=== PATIENT | female | born 1940 | race Caucasian/White ===

== ENCOUNTER → 2016-03-09 | Outpatient (CLI) | payer MEDICARE, BC ==
--- NOTE | 2016-03-10 10:56 | US ---
EXAMINATION TYPE: US kidneys/renal and bladder DATE OF EXAM: 03/09/2016 3:04 PM COMPARISON: NONE CLINICAL HISTORY: N39.0 UTI, Z87.440 Personal Hx Recurrent UTI. EXAM MEASUREMENTS: Right Kidney: 8.7 x 5.2 x 2.9 cm Left Kidney: 8.9 x 4.5 x 4.4 cm Post Void Residual Volume: 5.6 mL TECHNOLOGIST IMPRESSION: wnl Right Kidney: mid pole hyperechoic focus = 0.4 x 0.7 x 0.3cm and lower pole parallel wall calcificati on 0.2 x 0.2 x 0.2 could be vessel wall calcification Left Kidney: no hydro or masses seen Bladder: wnl Bilateral Jets seen: Yes Normal Post Void Residual: Yes Urinary bladder is felt within normal limits with bilateral distal ureter jets seen. Tiny amount of r esidual urine is seen after voiding. Renal sizes are symmetric and slightly small. A 7 mm nonshadowin g hyperechoic focus in right kidney is nonspecific. IMPRESSION: No hydronephrosis is evident bilaterally.
== END | disposition home or self-care (01) ==
LOC: RADUSWWP 14:23
PROVIDERS: ATTEND Family Medicine
DX: N39.0 Urinary tract infection, site not specified (principal); Z87.440 Personal history of urinary (tract) infections
CPT/HCPCS: 76770

== ENCOUNTER → 2017-03-10 | Outpatient (CLI) | payer MEDICARE, BC ==
--- NOTE | 2017-03-13 08:05 | MM ---
Reason for exam: screening (asymptomatic). Last mammogram was performed 1 year and 7 months ago. History: Patient is postmenopausal and has history of endometrial cancer at age 51. Excisional biopsy of the left breast. Taking estrogen for 16 years 7 months beginning at age 51. Physical Findings: A clinical breast exam by your physician is recommended on an annual basis and results should be correlated with mammographic findings. MG Screening Mammo w CAD Bilateral CC and MLO view(s) were taken. Prior study comparison: August 17, 2015, bilateral MG screening mammo w CAD. June 13, 2013, bilateral MG screening mammo w CAD. The breast tissue is heterogeneously dense. This may lower the sensitivity of mammography. Benign calcifications. There is chronic nodularity bilaterally. No significant changes when compared with prior studies. ASSESSMENT: Benign, BI-RAD 2 RECOMMENDATION: Routine screening mammogram of both breasts in 1 year.
== END ==
LOC: RADMAMWWP 11:56
PROVIDERS: ATTEND Family Medicine
DX: Z12.31 Encounter for screening mammogram for malignant neoplasm of breast (principal)
CPT/HCPCS: 77067

== ENCOUNTER → 2018-04-12 | Outpatient (CLI) | payer MEDICARE, BC ==
--- NOTE | 2018-04-15 08:45 | MM ---
Reason for exam: screening (asymptomatic). Last mammogram was performed 1 year and 1 month ago. History: Patient is postmenopausal and has history of endometrial cancer at age 51. Excisional biopsy of the left breast. Taking estrogen for 17 years 7 months beginning at age 51. Physical Findings: A clinical breast exam by your physician is recommended on an annual basis and results should be correlated with mammographic findings. MG Screening Mammo w CAD Bilateral CC and MLO view(s) were taken. Prior study comparison: March 10, 2017, bilateral MG screening mammo w CAD. August 17, 2015, bilateral MG screening mammo w CAD. The breast tissue is heterogeneously dense. This may lower the sensitivity of mammography. There are benign appearing round vascular calcifications bilaterally. There is no discrete abnormality. ASSESSMENT: Benign, BI-RAD 2 RECOMMENDATION: Routine screening mammogram of both breasts in 1 year.
== END | disposition home or self-care (01) ==
LOC: RADMAMWWP 14:38
PROVIDERS: ATTEND Family Medicine
DX: Z12.31 Encounter for screening mammogram for malignant neoplasm of breast (principal)
CPT/HCPCS: 77067

== ENCOUNTER → 2019-08-14 | Outpatient (CLI) | payer MEDICARE, BC ==
--- NOTE | 2019-08-14 13:34 | CT ---
EXAMINATION TYPE: CT brain wo/w con DATE OF EXAM: 08/14/2019 COMPARISON: None HISTORY: H53.482 L visual field CONTRAST: CT scan of the head is performed without and with IV Contrast, patient injected with 100 mL of Isovue 300. Unenhanced followed by contrast enhanced CT of the brain is submitted for evaluation. The ventricles are midline. There is no evidence for intracranial hemorrhage or extra-axial collection. No mass e ffects are identified. Visualized bony calvarium is intact. Contrast is administered and no enhanci ng lesions are detected. No pathologic enhancement is identified. If symptoms persist consider MRI. IMPRESSION: No significant abnormality to account for the patient's symptoms.
--- NOTE | 2019-08-14 13:41 | CT ---
EXAMINATION TYPE: CT orbits wo/w con DATE OF EXAM: 08/14/2019 COMPARISON: None HISTORY: Headache with visual disturbance. CT DLP: 2137 mGycm Automated exposure control for dose reduction was used. CONTRAST: Performed with IV Contrast, patient injected with 100 mL of Isovue 300. Unenhanced followed by contra st enhanced CT of the orbits was performed in the axial and coronal planes. FINDINGS: The globes are symmetric bilaterally. No evidence for intra or extraconal lesion. Optic nerves appear symmetric. No evidence for mass of the cavernous sinus. There is no evidence for exophthalmus. No mu scular wall thickening is noted. Paranasal sinuses are well-aerated. IMPRESSION: UNREMARKABLE EXAMINATION OF THE ORBITS
== END | disposition home or self-care (01) ==
LOC: RADCTMAIN 11:59
PROVIDERS: ATTEND Ophthalmology
DX: H53.482 Generalized contraction of visual field, left eye (principal)
CPT/HCPCS: 82565; 84520; 70470; 70482; 36415; Q9967

== ENCOUNTER → 2020-05-18 | Outpatient (CLI) | payer MEDICARE, BC ==
--- NOTE | 2020-05-18 16:34 | BD ---
EXAMINATION TYPE: Axial Bone Density DATE OF EXAM: 05/18/2020 COMPARISON: NONE CLINICAL HISTORY: 80-year-old female postmenopausal screening Height: 61 Weight: 126.8 FRAX RISK QUESTIONS: Alcohol (3 or more units per day): no Family History (Parent hip fracture): no Glucocorticoids (More than 3mos): no (Ex: prednisone, prednisolone, methylprednisolone, dexamethasone, and hydrocortisone). History of Fracture in Adulthood: yes Secondary Osteoporosis: 1. Type 1 Diabetes: no 2. Hyperthyroidism: no 3. Menopause before 45: no 4. Malnutrition: no 5. Chronic liver disease: no Rheumatoid Arthritis: no Current Tobacco Use: no RISK FACTORS HISTORY OF: Spine Fracture: c-2 When: 1967 Surgery to Spine/Hip(right/left)/Wrist (right/left): no Family History of Osteoporosis: no Active: yes Diet low in dairy products/other sources of calcium: yes Postmenopausal woman: age 52 Take estrogen and/or progesterone medications: premarin How lon years Lost more than 2 inches in height since high school: no MEDICATIONS: Thyroid Medications: thyroid How Lon years Additional History: EXAM MEASUREMENTS: Bone mineral densitometry was performed using the [employer] System. Bone mineral density as measured about the Lumbar spine is: ----- L1-L4(G/cm2): 1.125 T Score Values are as follows: ----- L2: -1.0 ----- L3: -0.1 ----- L4: 0.1 ----- L1-L4: -0.5 Bone mineral density : baseline Bone mineral density about the R hip (g/cm2): 0.797 Bone mineral density about the L hip (g/cm2): 0.780 T Score values are as follows: -----R Neck: -1.7 -----L Neck: -1.9 -----R Total: -0.7 -----L Total: -0.9 Bone mineral density : baseline IMPRESSION: Osteopenia (T Score between -2.5 and -1). There is slightly increased risk of fracture and the patient may be considered for treatment. Re-Screen 2-5 years. NOTE: T-SCORE=SD OF THE YOUNG ADULT MEAN.
--- NOTE | 2020-05-20 13:33 | MM ---
Reason for exam: screening (asymptomatic). Last mammogram was performed 2 years and 1 month ago. History: Patient is postmenopausal and has history of endometrial cancer at age 51. Excisional biopsy of the left breast. Taking estrogen for 17 years 7 months beginning at age 51. Physical Findings: A clinical breast exam by your physician is recommended on an annual basis and results should be correlated with mammographic findings. MG Screening Mammo w CAD Bilateral CC and MLO view(s) were taken. Prior study comparison: April 12, 2018, bilateral MG screening mammo w CAD. March 10, 2017, bilateral MG screening mammo w CAD. The breast tissue is heterogeneously dense. This may lower the sensitivity of mammography. No significant changes when compared with prior studies. ASSESSMENT: Benign, BI-RAD 2 RECOMMENDATION: Routine screening mammogram of both breasts in 1 year.
== END | disposition home or self-care (01) ==
LOC: RADMAMWWP 15:07
PROVIDERS: ATTEND Family Medicine
DX: Z12.31 Encounter for screening mammogram for malignant neoplasm of breast (principal); M85.89 Other specified disorders of bone density and structure, multiple sites; Z78.0 Asymptomatic menopausal state
CPT/HCPCS: 77067; 77080

== ENCOUNTER → 2022-12-20 | Outpatient (CLI) | payer MEDICARE ==
--- NOTE | 2022-12-21 17:06 | MM ---
Reason for Exam: Screening (asymptomatic). Last mammogram was performed 1 year(s) and 6 month(s) ago. Patient History: Menarche at age 12. First Full-Term at age 19. Hysterectomy at age 51. Postmenopausal. Endometrial cancer, age 51. Currently using Estrogen, beginning at age 51 for 17 years, 7 months. Excisional Biopsy on the Left side. Risk Values: July 5 year model risk: 1.6%. NCI Lifetime model risk: 2.0%. Prior Study Comparison: 08/17/2015 Bilateral Screening Mammogram, [facility]. 03/10/2017 Bilateral Screening Mammogram, [facility]. 04/12/2018 Bilateral Screening Mammogram, [facility]. 05/18/2020 Bilateral Screening Mammogram, [facility]. 06/24/2021 Bilateral MG screening mammo w CAD, [facility]. Tissue Density: The breast tissue is heterogeneously dense. This may lower the sensitivity of mammography. Findings: Analyzed By CAD. Pattern appears stable. Focal asymmetry is in the upper inner anterior left breast. Benign-appearing calcifications present bilaterally. Vascular calcifications are present bilaterally. Developing coarse calcifications are in the upper outer mid left breast. No suspicious groups of microcalcifications, spiculated or lobular masses, architectural distortion or other secondary signs of malignancy are mammographically apparent. Overall Assessment: Benign, BI-RAD 2 Management: Screening Mammogram of both breasts in 1 year. A negative mammogram report should not preclude additional follow up of suspicious palpable abnormalities. Patient should continue monthly self breast exam. A clinical breast exam by your physician is recommended on an annual basis and results should be correlated with mammographic findings. Electronically signed and approved by: Trent Cleaning D.O. Radiologis
== END | disposition home or self-care (01) ==
LOC: RADMAMWWP 13:43
PROVIDERS: ATTEND Family Medicine
DX: Z12.31 Encounter for screening mammogram for malignant neoplasm of breast (principal); Z78.0 Asymptomatic menopausal state
CPT/HCPCS: 77067

== ENCOUNTER → 2024-01-25 | Outpatient (CLI) | payer MEDICARE ==
--- NOTE | 2024-01-29 16:18 | MM ---
Reason for Exam: Screening (asymptomatic). Last mammogram was performed 1 year(s) and 1 month(s) ago. Patient History: Menarche at age 12. First Full-Term at age 19. Hysterectomy at age 51. Postmenopausal. Endometrial cancer, age 51. Currently using Estrogen, beginning at age 51 for 17 years, 7 months. Excisional Biopsy on the Left side. Risk Values: July 5 year model risk: 1.5%. NCI Lifetime model risk: 1.7%. Prior Study Comparison: 05/18/2020 Bilateral Screening Mammogram, [facility]. 06/24/2021 Bilateral MG screening mammo w CAD, [facility]. 12/20/2022 Bilateral MG screening mammo w CAD, [facility]. Tissue Density: The breasts are heterogeneously dense, which may obscure small masses. Findings: Analyzed By CAD. Unchanged area of asymmetric density on the left. Benign vascular calcifications on both sides. There is no suspicious group of microcalcifications or new suspicious mass in either breast. Overall Assessment: Benign, BI-RAD 2 Management: Screening Mammogram of both breasts in 1 year. . Patient should continue monthly self-breast exams. A clinical breast exam by your physician is recommended on an annual basis. This exam should not preclude additional follow-up of suspicious palpable abnormalities. Note on July scores and lifetime risk: 1. A July score greater than 3% is considered moderate risk. If this is the case, consider specialist referral to assess eligibility for a risk reducing agent. 2. If overall lifetime risk for the development of breast cancer is 20% or higher, the patient may qualify for future screening with alternating mammogram and breast MRI. [facility], , 01/29/2024 4:15 PM. Electronically signed and approved by: Lelo Hassan M.D. Radiologist
== END | disposition home or self-care (01) ==
LOC: RADMAMWWP 15:00
PROVIDERS: ATTEND Family Medicine
DX: Z12.31 Encounter for screening mammogram for malignant neoplasm of breast (principal); Z78.0 Asymptomatic menopausal state; R92.333 Mammographic heterogeneous density, bilateral breasts
CPT/HCPCS: 77067